=== PATIENT | male | born 1990 | race Caucasian/White ===

== ENCOUNTER 2017-08-19 13:20 | Inpatient (IN) | payer BC, OTHER ==
[~2017-08-19] VITALS: Ht 165.1 cm; Wt 63.5 kg
[2017-08-19] MEDS ORDERED: ACETAMINOPHEN 325 MG TABLET PO PRN (17:30)
[2017-08-19] MEDS ORDERED: BUPRENORPHINE HCL 2 MG TAB.SUBL SL PRN (17:30)
[2017-08-19] MEDS ORDERED: LOPERAMIDE HCL 2 MG CAPSULE PO PRN ×2 (17:30)
[2017-08-19] MEDS ORDERED: LORAZEPAM 1 MG TABLET PO PRN (17:30)
[2017-08-19] MEDS ORDERED: MAG HYDROX/AL HYDROX/SIMETH 30 ML LIQUID UDC PO PRN (17:30)
[2017-08-19] MEDS ORDERED: IBUPROFEN 600 MG TABLET PO PRN (17:30)
[2017-08-19] MEDS ORDERED: METHOCARBAMOL 750 MG TABLET PO PRN (17:30)
[2017-08-19] MEDS ORDERED: MAGNESIUM HYDROXIDE 30 ML LIQUID UDC PO PRN (17:30)
[2017-08-19] MEDS ORDERED: MIRALAX 17 GM POWD.PACK PO PRN (17:30)
[2017-08-19] MEDS ORDERED: ONDANSETRON ODT 4 MG TAB.RAPDIS SL PRN (17:30)
[2017-08-19] MEDS ORDERED: ONDANSETRON 4 MG/2 ML VIAL IM PRN (17:30)
[2017-08-19] MEDS ORDERED: DICYCLOMINE HCL 20 MG TABLET PO PRN (17:30)
[2017-08-19] MEDS ORDERED: HYDROXYZINE PAMOATE 25 MG CAPSULE PO PRN (17:30)
[2017-08-19 18:00] LABS: *AMPHETAMINE, URINE NEGATIVE (NEGATIVE); *BARBITURATE, URINE NEGATIVE (NEGATIVE); *CANNABINOID, URINE NEGATIVE (NEGATIVE); *COCCAINE, URINE NEGATIVE (NEGATIVE); *OPIATE, URINE POSITIVE (NEGATIVE); *PHENCYCLIDINE SCREEN,URINE NEGATIVE (NEGATIVE)
[2017-08-19] MEDS ORDERED: DESV50TA PO (18:07)
[2017-08-19] MEDS ORDERED: TIZA4CAP6 PO (18:07)
[2017-08-19] MEDS ORDERED: ONDA4TAB5 PO (18:07)
[2017-08-19] MEDS ORDERED: DICY20TA11 PO (18:07)
[2017-08-19] MEDS ORDERED: VILA40TA PO (18:07)
[2017-08-19] MEDS ORDERED: LAMO100T2 PO (18:07)
[2017-08-19] MEDS ORDERED: LEVE500T9 PO (18:07)
[2017-08-19] MEDS ORDERED: LOPE2CAP40 GT (18:07)
[2017-08-19] MEDS ORDERED: [UNRECOGNIZED DRUG - OTHER] (18:07)
[2017-08-19] MEDS ORDERED: RISP1TAB7 PO (18:07)
[2017-08-19] MEDS ORDERED: MIRT30TA PO (18:07)
[2017-08-19] MEDS ORDERED: [UNRECOGNIZED DRUG - OTHER] (18:07)
[2017-08-19] MEDS ORDERED: ORAJEL (18:07)
[2017-08-19] MEDS ORDERED: TRAZ-147 PO (18:07)
[2017-08-19] MEDS: BUPRENORPHINE HCL 2 MG TAB.SUBL SL SCH ×2 (18:18→21:31)
[2017-08-19 20:00] VITALS: BP 140/90
[2017-08-19] MEDS: GABAPENTIN 300 MG CAPSULE PO SCH (21:31)
[2017-08-19] MEDS: LAMOTRIGINE 100 MG PO SCH (21:32)
[2017-08-19 23:40] LABS: BASOPHILS % (AUTO) 0.3 % (0.0-2.0); EOSINOPHILS # (AUTO) 0.1 K/uL (0.0-0.7); EOSINOPHILS % (AUTO) 0.4 % (0.0-7.0); HEMATOCRIT 37.9 % (36.7-47.1); HEMOGLOBIN 13.2 g/dL (12.5-16.3); LYMPHOCYTES # (AUTO) 3.8 K/uL (20.0-40.0); LYMPHOCYTES % (AUTO) 22.1 % (20.5-51.5); MEAN CORPUSCULAR HEMOGLOBIN 28.8 uug (23.8-33.4); MEAN CORPUSCULAR HGB CONC 35 g/dL (32.5-36.3); MEAN CORPUSCULAR VOLUME 82.7 fL (73.0-96.2); MONOCYTES # (AUTO) 1.1 K/uL (2.0-10.0); MONOCYTES % (AUTO) 6.4 % (0.0-11.0); NEUTROPHILS # (AUTO) 12.3 K/uL (1.8-8.9); NEUTROPHILS % (AUTO) 70.8 % (38.5-71.5); PLATELET COUNT (AUTO) 540 K/uL (152-348); RED BLOOD CELL COUNT(AUTO) 4.59 MIL/uL (4.06-5.63); WHITE BLOOD COUNT (AUTO) 17.3 K/uL (3.6-10.2)
[2017-08-19 23:50] LABS: ALANINE AMINOTRANSFERASE 141 U/L (16-63); ALKALINE PHOSPHATASE 43 U/L (50-136); ASPARTATE AMINOTRANSFERASE 197 U/L (15-37); BILIRUBIN,TOTAL 0.3 mg/dL (0.2-1.0); CARBON DIOXIDE 30 mmol/L (21-32); CHLORIDE 98 mmol/L (98-107); CREATININE 1.1 mg/dL (0.6-1.3); GLUCOSE 102 mg/dL (74-106); POTASSIUM 3.6 mmol/L (3.5-5.1); TOTAL PROTEIN, SERUM 8.1 g/dL (6.4-8.2); UREA NITROGEN, BLOOD 15 mg/dL (7-18)
[2017-08-20 00:12] LABS: ETHANOL < 3 MG/DL (0-0)
[2017-08-20 08:00] VITALS: BP 135/88
[2017-08-20] MEDS: LAMOTRIGINE 300 MG PO SCH (08:14)
[2017-08-20] MEDS: GABAPENTIN 300 MG CAPSULE PO SCH ×2 (08:14→20:28)
[2017-08-20] MEDS: LAMOTRIGINE 100 MG PO SCH ×2 (08:18→20:28)
[2017-08-20] MEDS ORDERED: TUBERCULIN,PURIF.PROT.DERIV. 5 TU/0.1 ML TEST ID ONE (09:00)
[2017-08-20] MEDS ORDERED: BUPRENORPHINE HCL 2 MG TAB.SUBL SL SCH (09:00)
[2017-08-20 12:00] VITALS: BP 147/95
[2017-08-20] MEDS ORDERED: CLON0.1T14 PO (12:14)
[2017-08-20] MEDS ORDERED: METH-406 PO (12:14)
[2017-08-20] MEDS ORDERED: IBUP-1955 PO (12:14)
[2017-08-20] MEDS ORDERED: GABA-534 PO (12:14)
[2017-08-20] MEDS ORDERED: DICY20TA28 PO (12:14)
[2017-08-20] MEDS ORDERED: HYDR-3895 PO (12:14)
[2017-08-20] MEDS: CLONIDINE HCL 0.1 MG TABLET PO PRN (13:08)
[2017-08-20 16:00] VITALS: BP 150/90
[2017-08-20 20:00] VITALS: BP 142/90
[2017-08-21] VITALS: BP 161/106
[2017-08-21] MEDS: CLONIDINE HCL 0.1 MG TABLET PO PRN (00:13)
[2017-08-21 01:13] VITALS: BP 115/71
[2017-08-21 04:00] VITALS: BP 125/72
[2017-08-21 08:00] VITALS: BP 119/71
[2017-08-21 08:10] LABS: HEPATITIS B SURFACE AG Negative (Negative)
[2017-08-21] MEDS: GABAPENTIN 300 MG CAPSULE PO SCH (08:12)
[2017-08-21] MEDS: LAMOTRIGINE 100 MG PO SCH (08:12)
[2017-08-21] MEDS: LAMOTRIGINE 300 MG PO SCH (08:12)
[2017-08-21] MEDS ORDERED: BUPRENORPHINE HCL 2 MG TAB.SUBL SL SCH (09:00)
[2017-08-22] MEDS ORDERED: BUPRENORPHINE HCL 2 MG TAB.SUBL SL SCH (09:00)
== END 2017-08-21 09:47 | disposition other institution (70) | DRG 897 ==
LOC: SRC 16:29
PROVIDERS: ADMIT Internal Medicine; ATTEND Internal Medicine
PROC: HZ2ZZZZ Detoxification Services for Substance Abuse Treatment (ICD-10-PCS; principal; 2017-08-19)
DX: F11.23 Opioid dependence with withdrawal (principal); G40.919 Epilepsy, unspecified, intractable, without status epilepticus; F31.32 Bipolar disorder, current episode depressed, moderate; G47.00 Insomnia, unspecified; F41.9 Anxiety disorder, unspecified; F17.210 Nicotine dependence, cigarettes, uncomplicated; B19.20 Unspecified viral hepatitis C without hepatic coma; Z59.1 Inadequate housing; R74.0 Nonspecific elevation of levels of transaminase and lactic acid dehydrogenase [LDH]; F15.10 Other stimulant abuse, uncomplicated; D72.823 Leukemoid reaction
CPT/HCPCS: 36415; 80307; 80361; 83735; 85025; 86592; 86705; 86803; 87340; 87806; A4663; G0480

== ENCOUNTER 2017-09-18 18:52 | Inpatient (IN) | payer BC, OTHER ==
[~2017-09-18] VITALS: Ht 165.1 cm; Wt 59.0 kg
[~2017-09-18 18:52] MED LIST: CLON0.1T14 PO; DESV50TA PO; DICY20TA11 PO; DICY20TA28 PO; GABA-534 PO; HYDR-3895 PO; IBUP-1955 PO; LAMO100T2 PO; LEVE500T9 PO; LOPE2CAP40 GT; METH-406 PO; MIRT30TA PO; ONDA4TAB5 PO; RISP1TAB7 PO; TIZA4CAP6 PO; TRAZ-147 PO; VILA40TA PO; [UNRECOGNIZED DRUG - OTHER]
--- NOTE | 2017-09-18 22:30 | NUR ---
Intake Assessment Assessment done at intake office. He is a 27 y.o male admitted for supervised withdrawal from Heroin & Meth. He is alert & oriented x4. Speech is clear & audible. Pt has a flat affect, has poor eye contact and poor concentration. He appears disheveled, unkempt with dirty fingernails noted. He is restless, diaphoretic, anxious and irritable. No complaints of shortness of breath noted. Vitals taken immediately B/P 158/87, MS 117, RR 20, Temp 96.9, O2Sat 99%. Pt is coherent and is able to sign consent & respond to questions appropriately. Explained to pt unit protocols such as Q4H Vitals signs check & regarding destruction of any controlled substances brought to facility and handling of all medications. Will continue admission process when pt arrives in the unit.
[2017-09-18] MEDS ORDERED: HYDROXYZINE PAMOATE 25 MG CAPSULE PO PRN (22:45)
[2017-09-18] MEDS ORDERED: MAG HYDROX/AL HYDROX/SIMETH 30 ML LIQUID UDC PO PRN (22:45)
[2017-09-18] MEDS ORDERED: ONDANSETRON 4 MG/2 ML VIAL IM PRN (22:45)
[2017-09-18] MEDS ORDERED: BUPRENORPHINE HCL 2 MG TAB.SUBL SL PRN (22:45)
[2017-09-18] MEDS ORDERED: MAGNESIUM HYDROXIDE 30 ML LIQUID UDC PO PRN (22:45)
[2017-09-18] MEDS ORDERED: DICYCLOMINE HCL 20 MG TABLET PO PRN (22:45)
[2017-09-18] MEDS ORDERED: diphenhydrAMINE 50 MG CAPSULE PO PRN (22:45)
[2017-09-18] MEDS ORDERED: ONDANSETRON ODT 4 MG TAB.RAPDIS SL PRN (22:45)
[2017-09-18] MEDS ORDERED: LOPERAMIDE HCL 2 MG CAPSULE PO PRN ×2 (22:45)
[2017-09-18] MEDS ORDERED: ACETAMINOPHEN 325 MG TABLET PO PRN (22:45)
[2017-09-18] MEDS ORDERED: IBUPROFEN 600 MG TABLET PO PRN (22:45)
[2017-09-18] MEDS ORDERED: MIRALAX 17 GM POWD.PACK PO PRN (22:45)
--- NOTE | 2017-09-18 23:00 | NUR ---
ADMISSION NOTE: Patient is a 27 y.o male admitted at [facility] Unit at approximately 2235 pm of 09/18/17 for medically supervised withdrawal from Heroin & Meth. Body search done and skin check performed, no contraband found. Pt noted a scab on the back of his head from a previous fall a month ago. Pt is 5'5" tall and weighs 130 lbs in a standing scale. Pt is cooperative during assessment. Patient is oriented to floor unit and room. Patient follows a regular diet with no known food and drug allergies. Pt wishes to be full Code. Pt noted to be moderately withdrawing from Heroin. Patient is alert & oriented x4, ambulatory with a steady gait. Speech clear and audible. Patient appears disheveled, unkempt with dirty fingernails noted. Patient presented with a flat affect, anxious/irritable mood has poor eye contact, poor concentration, restless, diaphoretic, fine tremors & abdominal cramping. Bowel sounds active in all four quadrants. Last bowel noted was yesterday 09/17/17. Lung Sounds clear throughout. Pt denies SOB, cough or chest pain at this time. Pt denies visual, auditory & tactile hallucinations. COWS 18 noted. Pt denies PCP. Pt has medical history such as Anxiety, Depression, Bipolar disorder, Epilepsy, & Hx of Overdose a month ago. Pt denies any hx of suicide attempt. Pt currently denies SI/HI. Blood Labs were drawn. Pt was able to provide urine sample for drug screen upon admission and is voiding clear yellow urine with no problems. Substance use: 1. Heroin IV- Patient stated that he first had Heroin at age 10 yrs ago. For the past week, patient verbalized using intravenous Heroin 1.0gram daily. Last use yesterday 09/17/17, 1 gram. 2. Methamphetamine IV- Patient stated that he first had Meth 8 yrs ago. For the past week, patient verbalized using intravenous Meth 0.5gram daily. Last use was 6 hours prior to admission 09/18/17, 0.3 gram. 3. Marijuana- Pt stated that he first smoked MJ at age [age] years old. For the past week, patient verbalized smoking MJ 0.5gm daily. Last use was today, 0.5 gm. 4. Xanax- Pt took Xanax 2mg one time 3 days ago. Per, patient he took it for anxiety and he denies taking it on a daily basis Pt stated that he was admitted to multiple treatment center in the past, the most recent being at [facility] a month ago where he stayed for 3 days. Pt then stayed sober for 2 weeks after discharged and relapsed a week ago. He decided to come to treatment because "I hit rock bottom and I don't want to stay like this, I want to get clean". Patient verbalized plans on going to a residential tx centers after detox". Per patient, his longest period of sobriety was 1.5 years in [id number]. Patient smokes 10 cigarettes daily. Fall & Seizure precautions are in place. Will attend to all needs. Doctor Sharon is aware of pts admission and orders are placed. Educated patient about plan of care including detox, group therapy, individual therapy, and discharge planning. Encouraged patient to verbalized feelings. Encourage fluids as tolerated. Safety precautions are in place. Bed locked in lowest position. Both side rails padded & up. Call light within pt's reach. Will continue to monitor.
[2017-09-18 23:10] LABS: *AMPHETAMINE, URINE POSITIVE (NEGATIVE); *BARBITURATE, URINE NEGATIVE (NEGATIVE); *CANNABINOID, URINE POSITIVE (NEGATIVE); *COCCAINE, URINE NEGATIVE (NEGATIVE); *OPIATE, URINE POSITIVE (NEGATIVE); *PHENCYCLIDINE SCREEN,URINE NEGATIVE (NEGATIVE)
[2017-09-18] MEDS: CLONIDINE HCL 0.1 MG TABLET PO PRN (23:15)
[2017-09-18] MEDS: METHOCARBAMOL 750 MG TABLET PO PRN (23:16)
--- NOTE | 2017-09-18 23:16 | NUR ---
Pt presented with sweating, chills, restlessness, abdominal cramps, anxiety, agitation, reports 7/10 generalized body aches & fine tremors. COWS 18 noted. Vitals WNL. PRN Clonidine, Bentyl, Robaxin and Subutex administered as ordered together with scheduled Keppra, Lamictal & Ativan 2mg. Pt tolerated medications well. Safety measures in place. Will monitor for effectiveness of medication.
[2017-09-18] MEDS ORDERED: LORAZEPAM 1 MG TABLET PO ONE (23:30)
[2017-09-18] MEDS ORDERED: LEVETIRACETAM 500 MG TABLET PO ONE (23:30)
[2017-09-18] MEDS ORDERED: QUET300T2 PO (23:30)
[2017-09-18] MEDS ORDERED: LAMOTRIGINE 200 MG TABLET PO ONE (23:30)
[2017-09-18] MEDS ORDERED: QUET50TA PO (23:30)
[2017-09-18 23:45] LABS: BASOPHILS # (AUTO) 0.1 K/uL (0.0-8.0); BASOPHILS % (AUTO) 0.5 % (0.0-2.0); EOSINOPHILS % (AUTO) 0.2 % (0.0-7.0); HEMATOCRIT 37.6 % (36.7-47.1); HEMOGLOBIN 13.2 g/dL (12.5-16.3); LYMPHOCYTES # (AUTO) 1.6 K/uL (20.0-40.0); LYMPHOCYTES % (AUTO) 15.5 % (20.5-51.5); MEAN CORPUSCULAR HEMOGLOBIN 29.6 uug (23.8-33.4); MEAN CORPUSCULAR HGB CONC 35 g/dL (32.5-36.3); MEAN CORPUSCULAR VOLUME 84.4 fL (73.0-96.2); MONOCYTES # (AUTO) 0.8 K/uL (2.0-10.0); MONOCYTES % (AUTO) 7.9 % (0.0-11.0); NEUTROPHILS # (AUTO) 7.6 K/uL (1.8-8.9); NEUTROPHILS % (AUTO) 75.9 % (38.5-71.5); PLATELET COUNT (AUTO) 398 K/uL (152-348); RED BLOOD CELL COUNT(AUTO) 4.46 MIL/uL (4.06-5.63); WHITE BLOOD COUNT (AUTO) 10.1 K/uL (3.6-10.2)
[2017-09-19 00:01] LABS: ALANINE AMINOTRANSFERASE 34 U/L (16-63); ALKALINE PHOSPHATASE 59 U/L (50-136); ASPARTATE AMINOTRANSFERASE 25 U/L (15-37); CARBON DIOXIDE 19 mmol/L (21-32); CHLORIDE 96 mmol/L (98-107); GLUCOSE 88 mg/dL (74-106); MAGNESIUM 2.2 mg/dL (1.8-2.4); TOTAL PROTEIN, SERUM 8.5 g/dL (6.4-8.2); UREA NITROGEN, BLOOD 15 mg/dL (7-18)
[2017-09-19 00:08] LABS: ETHANOL < 3 MG/DL (0-0)
[2017-09-19 01:00] VITALS: BP 141/100
[2017-09-19] MEDS: LORAZEPAM 1 MG TABLET PO PRN ×3 (01:08→20:35)
--- NOTE | 2017-09-19 01:14 | NUR ---
Pt noted with a K+ level of 3.0. MD notified with orders noted and carried out. K-dur 40meQ administered as ordered and tolerated well. Will continue to monitor patient.
[2017-09-19] MEDS ORDERED: POTASSIUM CHLORIDE 20 MEQ TAB.PRT.SR PO ONE ×2 (01:15→09:00)
[2017-09-19] MEDS ORDERED: OLANZAPINE 10 MG VIAL IM ONE (01:30)
--- NOTE | 2017-09-19 01:42 | NUR ---
COUNTER HOP reported that pt was heard talking to himself inside his room. Upon entering the room, pt noted to be fidgeting, thrashing & pacing from one corner to the other. Pt noted with restlessness, he is unable to sit still and noted with anxiety and agitation. Pt noted with tangential & slurred speech, has poor eye contact, lacks focus and has altered thought process. Pt noted to be hallucinating- points to bedside table or the floor and talks to himself. Pt is alert to name and place, able to redirect momentarily but quickly looses focus and responds to questions inappropriately. Pt stated "when I get out of here, Im gonna cut off my balls, chew it up, then Ill throw it up and chew it up again". Ativan 2mg PRN administered @ 0108 is not effective. Pt was noted to be pacing the hallways, continues with increased agitation often yelling and slamming hands on bed and table. Psych MD contacted with new orders noted. Staff responded appropriately with both charge nurse, primary nurse, COUNTER HOP food service kitchen supervisor all at bedside to assist with deescalating the patient. Zyprexa 10mg IM x1 administered on right deltoid with no problems. Pt placed on 1:1 sitter for safety. Will monitor for effectiveness of medication.
--- NOTE | 2017-09-19 02:12 | NUR ---
PRN Zyprexa effective. Pt in bed with eyes close, appears calm & comfortable. Respiration even & unlabored. No facial grimacing noted at this time. Unable to reassess COWS at this time. 1:1 sitter at bedside within arms reach. Safety measures in place. Will continue to monitor patient.
[2017-09-19 04:00] VITALS: BP 103/59
--- NOTE | 2017-09-19 07:07 | NUR ---
End of Shift Note: Patient admitted last night a 27 y.o male for medically supervised withdrawal from Heroin & Meth use. Patient came in moderately withdrawing and noted with a COWS of 18. Pt presented with anxiety, agitation, sweating, chills, restlessness, stomach cramps, fine tremors & body aches. PRN Subutex, Clonidine, Bentyl & Robaxin were given. Pt was also given PRN Ativan 2mg but was ineffective and was able to obtain an order for Zyprexa 10mg IM for episodes of hallucinations. Last COWS is 17 and CIWA 33 was noted. Patient was placed on a 1:1 for safety. Pt will be started on a 3-day Subutex taper today. Continue to closely monitor pt for s/s of withdrawal. Pt was able to sleep for a total of 4 hours. Fluid intake is 355ml. Voided 2x with no bowel movement noted. All needs attended & met. Safety measures in place. Will endorse pt to day shift nurse.
--- NOTE | 2017-09-19 07:45 | NUR ---
Start of Shift Aerial Advertiser received report on 27 year old male admitted to [facility] on 09/18/17 for medical management of Benzodiazepine, Opiate and methamphetamine withdrawals. Pt endorses NKA, full code and regular diet. PMH to include Epilepsy, Hepatitis C, Akathesia and HX of OD. PPH of anxiety, depression and Bipolar. Pt currently on a 3 day modified taper to begin in this morning. Pt was administered Ativan(agitation) 2mg and Robaxin(muscle spasms) and Subutex(Withdrawals) on NOC, per report. Pts last COWS 18 and CIWA 33 per NOC report. Aerial Advertiser encounters pt in pts room resting with eyes closed, rise and fall of chest noted. Even and unlabored respirations. Bed in low position with wheels locked and side rails up x2. Will continue to monitor, support and encourage according to plan of care. Addendum: 09/19/17 at 1100 by JOBY WEISS RN Pt on 1:1 staffing for safety, d/t pt's disorientation, confusion and hallucinations
[2017-09-19 08:30] VITALS: BP 106/55
[2017-09-19] MEDS ORDERED: LAMOTRIGINE 200 MG TABLET PO SCH (09:00)
[2017-09-19] MEDS ORDERED: TUBERCULIN,PURIF.PROT.DERIV. 5 TU/0.1 ML TEST ID ONE (09:00)
--- NOTE | 2017-09-19 09:30 | NUR ---
Behavior Pt is anxious, restless and pacing the unit, with 11: attendant at side. Pt is A/O x3, pt disoriented to date. Pt's speech is slurred, garbled and tangential. Poor concentration. Pt difficult to redirect and to convince to use wheelchair for safety purposes. RTIS, but improving. Will continue to monitor, support and encourage according to plan of care
[2017-09-19] MEDS: LAMOTRIGINE 200 MG TABLET PO SCH (09:40)
[2017-09-19] MEDS: LEVETIRACETAM 500 MG TABLET PO SCH ×2 (09:40→20:35)
--- NOTE | 2017-09-19 09:41 | NUR ---
PRN Ativan Pt is agitated, restlessness and anxious, pacing the unit and visually RTIS. Searching and picking at unseen objects. Endorses AH, with no specific content disclosed. Assessed pt with CIWA 23 and administered medication to order with pt tolerating well. Will continue to monitor, support and encourage according to plan of care.
[2017-09-19] MEDS ORDERED: QUETIAPINE FUMARATE 25 MG TABLET PO ONE (10:00)
[2017-09-19] MEDS: CLONIDINE HCL 0.1 MG TABLET PO PRN (10:40)
[2017-09-19] MEDS: BUPRENORPHINE HCL 2 MG TAB.SUBL SL SCH ×2 (10:40→20:36)
--- NOTE | 2017-09-19 10:40 | NUR ---
PRN Clonidine Potato Chip Sorter administered medication for anxiety and agitation. Pt toelrating well. Will continue to monitor, support and encourage according to plan of care.
--- NOTE | 2017-09-19 10:41 | NUR ---
ABEL Ativan Re-Assessment Chocolate Finisher re-assessed CIWA with score of 18. Pt has slowed some and is less agitated and anxious. Medication effective. Will continue to monitor, support and encourage according to plan of care. 1: attendant remains at bedside.
--- NOTE | 2017-09-19 11:40 | NUR ---
PRN Clonidine Re-Assessment Pt is resting with eyes closed, rise and fall of chest noted with even and unlabored respirations. Arousable to name. 1:1 attendant at bedside for safety. Will continue to monitor, support and encourage according to plan of care.
--- NOTE | 2017-09-19 12:00 | NUR ---
COWS/CIWA/VS Deferred Marketing Database Consultant deferred assessments due to patient resting with eyes closed, even unlabored respirations at rate of 16. Last assessments recorded at 1041, COWS 15 and CIWA 18 Pt has not been sleeping and has been having VH and pt endorses AH. Will continue to monitor, support and encourage according to plan of care.
[2017-09-19] MEDS: QUETIAPINE FUMARATE 25 MG TABLET PO SCH ×2 (13:00→17:00)
--- NOTE | 2017-09-19 13:00 | NUR ---
Darren Lared Store Manager did not administer medication d/t pt resting with eyes closed and even and unlabored respirations. Pt has been unable to sleep. Pt has 1:1 attendant at bedside for safety. Will continue to monitor, support and encourage according to plan of care.
--- NOTE | 2017-09-19 16:00 | NUR ---
COWS Deferred Pt resting with eyes closed, even and unlabored respirations, no distress noted. Dr. Herrera notified of last two COWS being deferred, with no further orders received. Will continue to monitor, support and encourage according to plan of care.
--- NOTE | 2017-09-19 17:00 | NUR ---
Darren Deferred Thoracic Medicine Specialist non-administered medication due to resting with eyes closed and sedation. Pt is arousable, but lethargic and somnolent. Unable to stay focused and awake. Will continue to monitor, support and encourage according to plan of care.
[2017-09-19 17:39] VITALS: BP 117/68
[2017-09-19 18:46] LABS: CREATININE 0.9 mg/dL (0.6-1.3); MAGNESIUM 2.4 mg/dL (1.8-2.4); POTASSIUM 4.3 mmol/L (3.5-5.1)
--- NOTE | 2017-09-19 18:47 | NUR ---
End of Shift Sheet Heater Helper provided report on 27 year old male admitted to [facility] on 09/18/17 for medical management of Benzodiazepine, Opiate and methamphetamine withdrawals. Pt endorses NKA, full code and regular diet. PMH to include Epilepsy, Hepatitis C, Akathesia and HX of OD. PPH of anxiety, depression and Bipolar. Pt currently on a 3 day modified taper which began this shift. Pt was administered Ativan(agitation) 2mg and Clonidine(agitation) PRN by database report writer, with effective results. Pts 1300 and 1500 scheduled doses of Seroquel were held by database report writer d/t somnolence. Pts last recorded COWS 15 and CIWA 18 recorded at 1041. Sheet Heater Helper has deferred COWS at 1200 and 1600 d/t pts resting with eyes closed, even and unlabored respirations. made aware of deferred COWS. Pt was difficult to redirect in the am and was visually RTIS, and was endorsing AH. Pt is able to be aroused, but is difficult to get to maintain attention. Pt quickly fades off and cannot concentrate to follow directions. Bed in low position with wheels locked and side rails up x2. Pt continues to have 1:1 staff for safety.
--- NOTE | 2017-09-19 19:15 | NUR ---
Start of of Shift Note: Patient is a 27 y.o male admitted last night for medically supervised withdrawal from Heroin & Meth use. Patient has PMHx of Anxiety, Depression, Bipolar Epilepsy, Hep C, Akathisia & Hx of Overdose. Patient is in bed with eyes close. He has been sleeping throughout the day with episodes of hallucinations when awake. Scheduled Seroquel were held @ 1300 & 1900 per report. He is on a Subutex taper and tolerating well. Last COWS 15 @ 1030. Pt received PRN Clonidine & Ativan 2mg during the day and was effective per report. Pt continues to have 1:1 sitter for safety. Safety precaution in place. Bed locked in lowest position. Both side rails up. Call light within pt's reach. Will continue to monitor patient.
[2017-09-19 20:00] VITALS: BP 112/78
--- NOTE | 2017-09-19 20:35 | NUR ---
Pt awake in bed and noted with increased anxiety & agitation. Pt noted with restlessness & he is unable to remain in one position. Pt still noted with slurred speech, complains of 7/10 generalized body aches, stomach cramps, chills & sweating. Pt is alert to name, place and situation. Pt denies hallucinations at this time. PRN Ativan 2mg & Robaxin administered as ordered. Will monitor for effectiveness of medication.
[2017-09-19] MEDS: METHOCARBAMOL 750 MG TABLET PO PRN (20:36)
[2017-09-19] MEDS ORDERED: LAMOTRIGINE 100 MG TABLET PO SCH (21:00)
[2017-09-19] MEDS ORDERED: QUETIAPINE FUMARATE 200 MG TABLET PO SCH (21:00)
--- NOTE | 2017-09-19 21:35 | NUR ---
Pt still awake in bed but appears drowsy. PRN medication was somewhat effective. Pt noted with decrease in anxiety & agitation. Pt still noted with restlessness & pt kept standing up. Calming reassurance and redirection provided. 1:1 sitter is within arms reach. Safety precautions provided. Will continue to monitor patient.
--- NOTE | 2017-09-19 22:00 | NUR ---
Pt asleep in bed and appears comfortable. No shortness of breath noted. Respiration even & unlabored. 1:1 sitter at bedside and within arms reach. Safety measures in place. Will continue to monitor patient.
[2017-09-20] VITALS: BP 101/56
[2017-09-20 04:00] VITALS: BP 108/65
--- NOTE | 2017-09-20 07:18 | NUR ---
End of Shift Note: Patient is a 27 y.o male for medically supervised withdrawal from Heroin & Meth use. Patient continues to present anxiety, agitation, & restlessness. Pt still noted with slurred speech, complains of 7/10 generalized body aches, stomach cramps, chills & sweating. Frequent redirection & calming reassurance provided. Pt continues on his Subutex taper and tolerating well. Last COWS 10. Pt received PRN Ativan 2mg for anxiety & agitation, Robaxin for bodyaches. Medications were effective in managing symptoms of withdrawal. Pt continues to be on 1:1 for safety precautions. Vitals were closely monitored & noted WNL. Pt was encouraged to increased fluid intake as tolerated. Pt slept for a total of 7 hours. Fluid intake: 655 ml, Voided 2x with 1x bowel movement All needs attended & met. Safety measures in place. Will endorse pt to day shift nurse.
--- NOTE | 2017-09-20 07:30 | NUR ---
Start of shift Patient is a 27 y/o male admitted for medically supervised withdrawal from Heroin and Meth. Patient present anxiety, agitation, and restlessness. Pt has with slurred speech, complains of 8/10 generalized body aches. Pt drowsy, oriented X2. Pt on 1:1 for safety r/t drowsy and unsteady gait. Frequent redirection & calming reassurance provided. Pt on 3 day Subutex taper and tolerating well. Last COWS 10. Last night Pt received PRN Ativan 2mg for anxiety & agitation, Robaxin for body aches. Pt was encouraged to increased fluid intake as tolerated. Pt slept for a total of 7 hours. NKA, FULL CODE. Safety measures in the place: Call light within reach, bed in the lowest position locked, padded rails up x2. Will continue to monitor for withdrawal symptoms.
[2017-09-20 08:00] VITALS: BP 122/75
[2017-09-20] MEDS: LAMOTRIGINE 200 MG TABLET PO SCH (08:06)
[2017-09-20] MEDS: CLONIDINE HCL 0.1 MG TABLET PO PRN (08:06)
[2017-09-20] MEDS: LEVETIRACETAM 500 MG TABLET PO SCH (08:07)
[2017-09-20] MEDS: QUETIAPINE FUMARATE 25 MG TABLET PO SCH ×2 (08:07→12:00)
[2017-09-20] MEDS: METHOCARBAMOL 750 MG TABLET PO PRN (08:08)
--- NOTE | 2017-09-20 08:10 | NUR ---
PRN ROBAXIN 750 MG PO FOR BODY ACHES IBUPROFEN 600 MG FOR HEAD ACHE AND BODY PAIN #8/10 CLONIDINE 0.1 MG PO FOR ANXIETY
[2017-09-20] MEDS ORDERED: BUPRENORPHINE HCL 2 MG TAB.SUBL SL SCH (09:00)
--- NOTE | 2017-09-20 09:10 | NUR ---
REASSESS MEDICATIONS- IBUPROFEN, ROBAXIN AND CLONIDINE, PT ASLEEP IN BED. RESP EVEN AND UNLABORED. PT LESS IRRITABLE AND FIDGETY.
[2017-09-20 12:03] VITALS: BP 143/71
[2017-09-20 13:09] LABS: HEPATITIS B SURFACE AG Negative (Negative)
--- NOTE | 2017-09-20 14:17 | NUR ---
AMA Note Pt left AMA. Pt refused to comply with treatment plan and was upset about aftercare treatment options. Pt educated about the risks and consequences of leaving AMA. Pt verbalized understanding but was adamant about leaving. Multiple staff members including the doctor, patient advocates and nurses attempted to reason with the patient without any success. VS WNL. Pt has scabbed wound on back of his head r/t fall last month. Pt denies any suicidal or homicidal ideations. Pt psychiatrist and MD were notified and aware. Pt was given a list of community resources, AMA forms explained and signed. All belongings returned to Pt. Pt left facility on 09/20/2017 at 1417.
[2017-09-21] MEDS ORDERED: BUPRENORPHINE HCL 2 MG TAB.SUBL SL SCH (09:00)
== END 2017-09-20 14:17 | disposition left against medical advice (07) | DRG 894 ==
LOC: SRC 21:58
PROVIDERS: ADMIT Internal Medicine; ATTEND Internal Medicine
PROC: HZ2ZZZZ Detoxification Services for Substance Abuse Treatment (ICD-10-PCS; principal; 2017-09-18)
PROC: HZ51ZZZ Individual Psychotherapy for Substance Abuse Treatment, Behavioral (ICD-10-PCS; 2017-09-20)
DX: F11.23 Opioid dependence with withdrawal (principal); G40.919 Epilepsy, unspecified, intractable, without status epilepticus; E87.2 Acidosis; F15.20 Other stimulant dependence, uncomplicated; E87.1 Hypo-osmolality and hyponatremia; F15.259 Other stimulant dependence with stimulant-induced psychotic disorder, unspecified; F31.64 Bipolar disorder, current episode mixed, severe, with psychotic features; F17.210 Nicotine dependence, cigarettes, uncomplicated; F41.9 Anxiety disorder, unspecified; E87.6 Hypokalemia; G47.00 Insomnia, unspecified; Z59.1 Inadequate housing; B19.20 Unspecified viral hepatitis C without hepatic coma; E86.0 Dehydration; I15.9 Secondary hypertension, unspecified; F10.10 Alcohol abuse, uncomplicated; Y90.0 Blood alcohol level of less than 20 mg/100 ml
CPT/HCPCS: 36415; 80307; 80324; 80346; 80349; 80361; 83605; 83735; 85025; 86580; 86592; 86705; 86803; 87340; 87806; A4663; G0480; J2358